=== PATIENT | female | born 2000 | race Hispanic/Latino ===

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

== ENCOUNTER 2020-12-04 21:04 | Emergency (ER) | payer OTHER ==
[~2020-12-04] VITALS: Ht 162.6 cm; Wt 72.6 kg
[2020-12-04 21:14] VITALS: BP 121/78
[2020-12-04 22:17] VITALS: BP 121/78
[2020-12-04] MEDS ORDERED: IBUPROFEN 200 MG TAB ONE (22:26)
[2020-12-04] MEDS ORDERED: IBUPROFEN 600 MG TABLET PO ONE (22:30)
[2020-12-04] MEDS ORDERED: METH4TAB3 PO (23:52)
[2020-12-04] MEDS ORDERED: IBUP-2070 PO (23:52)
[2020-12-04] MEDS ORDERED: AZIT250T9 PO (23:52)
[2020-12-04] MEDS ORDERED: FLUT9.9S NS (23:52)
== END 2020-12-05 00:02 | disposition home or self-care (01) ==
LOC: EDH 21:04
DX: J01.90 Acute sinusitis, unspecified (principal); R05 Cough; J40 Bronchitis, not specified as acute or chronic; Z20.822 Contact with and (suspected) exposure to COVID-19; Z88.8 Allergy status to other drugs, medicaments and biological substances
CPT/HCPCS: 71045; 87635; 87804 ×2; 87880; 99284; C9803